=== PATIENT | male | born 1935 | race Caucasian/White ===

== ENCOUNTER 2018-12-13 06:45 | Day surgery (SDC) | payer MEDICARE, OTHER ==
[2018-12-13] MEDS ORDERED: Propofol 200 MG/20 ML SDV ONE (07:19)
[2018-12-13] MEDS ORDERED: Midazolam 1 MG/ML 2 ML SDV ONE (07:19)
[2018-12-13] MEDS ORDERED: fentaNYL 100 MCG/2 ML SDV ONE (07:19)
[2018-12-13] MEDS ORDERED: Dextrose 5%-Lactated Ringers 1,000 ML IV SCH (08:00)
--- NOTE | 2018-12-19 11:29 | OR ---
DATE OF PROCEDURE: 12/13/2018 PREOPERATIVE DIAGNOSIS: Gastroesophageal reflux symptoms, likely related to gastroparesis, status post previous esophagogastrectomy. POSTOPERATIVE DIAGNOSIS: Severe gastroparesis with a large gastric bezoar. OPERATIVE PROCEDURE: Upper GI endoscopy. ANESTHESIA: IV sedation. INDICATION FOR PROCEDURE: This is an 83-year-old status post an esophagogastrectomy for esophageal carcinoma in 2012. He has had no known recurrence, but has had problems with retained food bolus since the procedure had been completed and this has presently become quite a bit worsened and the patient is on omeprazole 40 mg a day, but is having quite severe reflux symptoms. It is also notable that the patient has a longstanding type 2 diabetes mellitus. Plan is to proceed with an upper GI endoscopy for diagnostic purposes with biopsies as indicated. Potential risks including bleeding and perforation were discussed, and the patient wishes to proceed. DETAILS OF PROCEDURE: The patient was taken to the operating room and placed in a left lateral decubitus position. IV sedation was administered, after which the upper GI endoscope was passed orally through the length of the esophagus, which I entered at the gastrojejunostomy in the upper chest area and this anastomosis was somewhat reddened, but otherwise widely patent. As one entered the stomach, this was almost completely full of retained ingested contents. We attempted to get past that and visualize the to make sure there is not any outlet obstruction mechanically, but we were unable to get that visualization obtained, and at that point, the scope was then withdrawn and the procedure was then concluded. At this point, the patient will be started on erythromycin 125 mg p.o. q.i.d. and counseling will be given to the patient regarding the anti-bezoar diet. We will have the dietitian call the patient again tomorrow to review the diet once again to make sure that he understands well. Plan is for the patient to have a repeat upper endoscopy in 1 month to see what extent the bezoar has cleared as well as at that point hopefully clearly demonstrate that there is not an outlet obstruction at the level of the pylorus. Ronni Brizuela MD /[id number]
== END 2018-12-13 11:12 | disposition home or self-care (01) ==
LOC: JP.SDS 06:45
PROVIDERS: ATTEND Surgery
DX: K31.84 Gastroparesis (principal); T18.2XXA Foreign body in stomach, initial encounter; K21.9 Gastro-esophageal reflux disease without esophagitis; I10 Essential (primary) hypertension; J44.9 Chronic obstructive pulmonary disease, unspecified; E11.9 Type 2 diabetes mellitus without complications; Z88.6 Allergy status to analgesic agent; Z85.00 Personal history of malignant neoplasm of unspecified digestive organ; Z99.89 Dependence on other enabling machines and devices
CPT/HCPCS: 43235; 82962; J2250; J2704; J3010; J7042